=== PATIENT | female | born 1960 | race African-American/Black ===

== ENCOUNTER 2022-01-31 00:12 | Emergency (ER) | payer MEDICAID ==
[~2022-01-31] VITALS: Ht 157.5 cm; Wt 58.0 kg
[2022-01-31] MEDS ORDERED: DIPHENHYDRAMINE 25MG CAPSULE PO ONE (02:30)
[2022-01-31] MEDS ORDERED: DIPH25CA83 MT (02:40)
[2022-01-31] MEDS ORDERED: HYDR-4233 TP (02:40)
[2022-01-31 03:03] VITALS: BP 112/78
[2022-01-31] MEDS ORDERED: ACETAMINOPHEN 325MG TABLET PO ONE (03:15)
[2022-02-01 07:09] LABS: HIV SCREEN 4G Non Reactive (Non Reactive)
== END 2022-02-02 03:03 | disposition home or self-care (01) ==
LOC: ER 00:12
DX: R21 Rash and other nonspecific skin eruption (principal); J44.1 Chronic obstructive pulmonary disease with (acute) exacerbation; I50.9 Heart failure, unspecified; Z98.890 Other specified postprocedural states
CPT/HCPCS: 86592; 87389; 99283; Q0163

== ENCOUNTER 2022-03-21 11:04 | Emergency (ER) | payer MEDICAID, OTHER ==
[~2022-03-21] VITALS: Ht 162.6 cm; Wt 76.0 kg
[~2022-03-21 11:04] MED LIST: DIPH25CA83 MT; HYDR-4233 TP
[2022-03-21] MEDS ORDERED: MORPHINE SULFATE 4 MG/ML CPJ (NOT FOR IM USE) IV STA (12:09)
[2022-03-21] MEDS ORDERED: ONDANSETRON HCL 4MG/2ML INJ IV STA (12:09)
[2022-03-21] MEDS ORDERED: SODIUM CHLORIDE 0.9% 1,000 ML IV ONE (12:15)
[2022-03-21 12:50] LABS: HEMOGLOBIN. 12.1 g/dL (12.0-16.0); MEAN CORPUSCULAR HEMOGLOBIN 25.5 pg (28.0-32.0); MEAN PLATELET VOLUME 7.3 fl (7.4-10.4); PLATELET 256 x1000/uL (130-400); RED BLOOD CELL COUNT 4.75 mill/uL (4.2-5.4); RED CELL DISTRIBUTION WIDTH 21.4 % (11.6-14.6)
[2022-03-21 13:00] LABS: CHLORIDE 110 mEq/L (98-107)
[2022-03-21 13:08] LABS: ETHANOL BLOOD < 10 mg/dL
[2022-03-21] MEDS ORDERED: FAMO-135 MT (14:01)
[2022-03-21 14:44] VITALS: BP 146/64
[2022-03-21 15:27] LABS: PLATELET ESTIMATE NORMAL
[2022-03-21] MEDS ORDERED: FURO-151 MT (16:36)
[2022-03-21] MEDS ORDERED: CARV6.2548 MT (16:36)
[2022-03-21] MEDS ORDERED: ALBU6.7H9 INH (16:47)
[2022-03-21] MEDS ORDERED: ALBU18HF2 IH (16:54)
== END 2022-03-21 14:59 | disposition home or self-care (01) ==
LOC: ER 12:16 → EDBD 12:16 → ER 14:59 → CANBEDREQ 19:52
DX: K74.60 Unspecified cirrhosis of liver (principal); J44.1 Chronic obstructive pulmonary disease with (acute) exacerbation; I50.9 Heart failure, unspecified; Z98.890 Other specified postprocedural states
CPT/HCPCS: 36415; 74176; 80053; 80320; 83690; 85025; 96361; 96374; 96375; 99284; J2270; J2405; J7030; G0480

== ENCOUNTER 2022-03-21 15:34 | Emergency (ER) | payer OTHER ==
[~2022-03-21] VITALS: Ht 165.1 cm; Wt 70.0 kg
[~2022-03-21 15:34] MED LIST changes: +FAMO-135 MT
[2022-03-21 15:47] VITALS: BP 98/60
[2022-03-21] MEDS ORDERED: CARV6.2548 MT (16:36)
[2022-03-21] MEDS ORDERED: FURO-151 MT (16:36)
[2022-03-21] MEDS ORDERED: ALBU6.7H9 INH (16:47)
[2022-03-21] MEDS ORDERED: ALBU18HF2 IH (16:54)
== END 2022-03-21 17:13 | disposition home or self-care (01) ==
LOC: ER 15:34
DX: Z76.0 Encounter for issue of repeat prescription (principal); Z98.890 Other specified postprocedural states; J44.1 Chronic obstructive pulmonary disease with (acute) exacerbation
CPT/HCPCS: 99281

== ENCOUNTER 2022-03-23 00:21 | Emergency (ER) | payer MEDICAID, OTHER ==
[~2022-03-23] VITALS: Ht 157.5 cm; Wt 61.8 kg
[~2022-03-23 00:21] MED LIST changes: +ALBU18HF2 IH; +CARV6.2548 MT; +FURO-151 MT
[2022-03-23 00:55] VITALS: BP 126/100
[2022-03-23 01:53] LABS: HEMOGLOBIN. 11.8 g/dL (12.0-16.0); MEAN CORPUSCULAR HEMOGLOBIN 26.1 pg (28.0-32.0); MEAN CORPUSCULAR VOLUME 79.6 fL (81.0-99.0); PLATELET 246 x1000/uL (130-400); RED BLOOD CELL COUNT 4.53 mill/uL (4.2-5.4); RED CELL DISTRIBUTION WIDTH 21.5 % (11.6-14.6)
[2022-03-23 02:01] LABS: CHLORIDE 106 mEq/L (98-107)
[2022-03-23 02:57] LABS: PLATELET ESTIMATE NORMAL
[2022-03-23] MEDS ORDERED: FURO-151 PO (05:00)
[2022-03-23] MEDS ORDERED: ACETAMINOPHEN 650MG/20.3ML UDC PO ONE (06:15)
[2022-03-23] MEDS ORDERED: IBUPROFEN 400MG TABLET PO ONE (06:15)
[2022-03-23] MEDS ORDERED: FURO40TA5 MT (12:55)
[2022-03-23] MEDS ORDERED: CARV6.2548 MT (12:55)
== END 2022-03-23 06:22 | disposition home or self-care (01) ==
LOC: ER 00:21
DX: M79.604 Pain in right leg (principal); M79.605 Pain in left leg; Z76.0 Encounter for issue of repeat prescription; I11.0 Hypertensive heart disease with heart failure; I50.9 Heart failure, unspecified; J44.9 Chronic obstructive pulmonary disease, unspecified; E11.9 Type 2 diabetes mellitus without complications; Z98.890 Other specified postprocedural states
CPT/HCPCS: 36415; 71045; 80053; 83880; 84484; 85025; 93005; 99285

== ENCOUNTER 2022-03-23 06:33 | Emergency (ER) | payer OTHER ==
[~2022-03-23] VITALS: Ht 157.5 cm; Wt 61.2 kg
[~2022-03-23 06:33] MED LIST changes: +FURO-151 PO
[2022-03-23] MEDS ORDERED: CARV6.2548 MT (12:55)
[2022-03-23] MEDS ORDERED: FURO40TA5 MT (12:55)
[2022-03-23 13:40] VITALS: BP 110/82
== END 2022-03-23 13:42 | disposition home or self-care (01) ==
LOC: ER 06:33
DX: Z76.0 Encounter for issue of repeat prescription (principal); I11.0 Hypertensive heart disease with heart failure; I50.9 Heart failure, unspecified; J45.909 Unspecified asthma, uncomplicated; Z79.899 Other long term (current) drug therapy
CPT/HCPCS: 99281; 99283